=== PATIENT | female | born 1970 | race Caucasian/White ===

== ENCOUNTER 2016-11-01 20:45 | Emergency (ER) | payer BC, MEDICARE ==
--- NOTE | 2016-11-01 20:51 | EDM.PDOC ---
ED HPI GENERAL MEDICAL PROBLEM - General Stated Complaint: SEIZURE Time Seen by Provider: 11/01/16 20:51 Source of Information: Reports: Patient History Limitations: Reports: No Limitations - History of Present Illness INITIAL COMMENTS - FREE TEXT/NARRATIVE: 46 yo F with past medical history significant for Pseudoseizures. Was brought back to the ER this night with recurrent seizure like activity. Patient was seen earlier in the ER and evaluated. She did receive IV Ativan and Phenobarb. She apparently improved and was discharged. Return to the ER with continued symptoms Onset: Today Improves with: Reports: None Worsens with: Reports: None Associated Symptoms: Reports: No Other Symptoms - Related Data Allergies Allergy/AdvReac Type Severity Reaction Status Date / Time amoxicillin [Amoxicillin] Allergy Anaphylactic Verified 11/01/16 21:01 Shock cephalexin [Cephalexin] Allergy Rash Verified 11/01/16 21:01 lamotrigine [From Lamictal] Allergy Rash Verified 11/01/16 21:01 oseltamivir phosphate Allergy Cannot Verified 11/01/16 21:01 [From Tamiflu] Remember quetiapine fumarate Allergy Depression Verified 11/01/16 21:01 [From Seroquel] clonazepam AdvReac Depression Verified 11/01/16 21:01 Home Meds: Home Meds traZODone 50 mg PO BEDTIME 06/30/13 [History] Desvenlafaxine [Pristiq] 100 mg PO DAILY 04/08/15 [History] Estrogens, Conjugated [Premarin] 0.625 mg PO DAILY 04/08/15 [History] OXcarbazepine [Trileptal] 900 mg PO DAILY 04/08/15 [History] Simvastatin [Simvastatin] 20 mg PO BEDTIME 04/08/15 [History] Past Medical History Cardiovascular History: Reports: High Cholesterol Respiratory History: Reports: Asthma 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: Musculoskeletal History: Reports: Fracture Neurological History: Reports: Seizure Other Neuro History: "pseudoseizures" per daughter, and pt Psychiatric History: Reports: Anxiety, Bipolar, Depression, Other (See Below) - Infectious Disease History Infectious Disease History: Reports: Chicken Pox, Influenza - Past Surgical History HEENT Surgical History: Reports: Oral Surgery GI Surgical History: Reports: Appendectomy, Cholecystectomy Female Surgical History: Reports: Section, Hysterectomy, Salpingo- Oophorectomy Musculoskeletal Surgical History: Reports: Other (See Below) Social & Family History - Family History Family Medical History: Unobtainable - Tobacco Use Smoking Status *Q: Current Every Day Smoker Years of Tobacco use: 30 Packs/Tins Daily: 0.5 Used Tobacco, but Quit: No - Caffeine Use Caffeine Use: Reports: Coffee - Alcohol Use Days Per Week of Alcohol Use: 0 - Recreational Drug Use Recreational Drug Use: No - Living Situation & Occupation Living situation: Reports: ED ROS GENERAL - Review of Systems Review Of Systems: See Below Constitutional: Reports: No Symptoms HEENT: Reports: No Symptoms Respiratory: Reports: No Symptoms Cardiovascular: Reports: No Symptoms Endocrine: Reports: No Symptoms GI/Abdominal: Reports: No Symptoms Musculoskeletal: Reports: No Symptoms Skin: Reports: No Symptoms Neurological: Reports: Seizure Psychiatric: Reports: No Symptoms Hematologic/Lymphatic: Reports: No Symptoms Immunologic: Reports: No Symptoms ED EXAM, GENERAL - Physical Exam Exam: See Below Exam Limited By: No Limitations General Appearance: Alert, WD/WN, No Apparent Distress Eye Exam: Bilateral Eye: EOMI Ears: Normal External Exam, Normal Canal, Hearing Grossly Normal, Normal TMs Nose: Normal Inspection, Normal Mucosa, No Blood Throat/Mouth: Normal Inspection, Normal Lips, Normal Oropharynx, No Airway Compromise Head: Atraumatic, Normocephalic Neck: Normal Inspection, Supple, Non-Tender Respiratory/Chest: No Respiratory Distress, Lungs Clear Cardiovascular: Normal Peripheral Pulses, Regular Rate, Rhythm, No Edema GI/Abdominal: Normal Bowel Sounds, Soft, Non-Tender, No Organomegaly Back Exam: Normal Inspection, Full Range of Motion Extremities: Normal Inspection, Normal Range of Motion, Non-Tender Neurological: Alert, Oriented, CN II-XII Intact, Normal Cognition Psychiatric: Normal Affect, Normal Mood Skin Exam: Warm Lymphatic: No Adenopathy Course - Vital Signs Last Recorded V/S: Last Vital Signs Temp 36.9 C 11/01/16 20:45 Pulse 82 11/01/16 21:44 Resp 16 11/01/16 21:44 BP 99/61 11/01/16 21:44 Pulse Ox 94 L 11/01/16 20:45 - Orders/Labs/Meds Orders: Active Orders 24 hr Category Date Time Status Head wo Cont [CT] Stat Exams 11/01/16 20:51 Taken Labs: Laboratory Tests 11/01/16 11/01/16 11/01/16 Range/Units 21:00 21:00 21:00 WBC 4.5 (4.5-12.0) X10-3/uL RBC 4.18 (3.23-5.20) x10(6)uL Hgb 13.2 (11.5-15.5) g/dL Hct 38.1 (30.0-51.3) % MCV 91.1 (80-96) fL MCH 31.5 (27.7-33.6) pg MCHC 34.6 (32.2-35.4) g/dL RDW 12.4 (11.5-15.5) % Plt Count 172 (125-369) X10(3)uL MPV 7.7 (7.4-10.4) fL Neut % (Auto) 60.4 (46-82) % Lymph % (Auto) 30.1 (13-37) % Gosper % (Auto) 8.7 (4-12) % Eos % (Auto) 0 L (1.0-5.0) % Baso % (Auto) 1 (0-2) % Neut # (Auto) 2.8 (1.6-8.3) # Lymph # (Auto) 1.3 (0.6-5.0) # Gosper # (Auto) 0.4 (0.0-1.3) # Eos # (Auto) 0.0 (0.0-0.8) # Baso # (Auto) 0.0 (0.0-0.2) # Sodium 138 (135-145) mmol/L Potassium 3.8 (3.5-5.3) mmol/L Chloride 105 (100-110) mmol/L Carbon Dioxide 24 (23-29) mmol/L BUN 17 (5-20) mg/dL Creatinine 0.9 (0.6-1.3) mg/dL Est Cr Clr Drug Dosing TNP Estimated GFR (MDRD) > 60 (>60) BUN/Creatinine Ratio 18.9 (9-20) Glucose 116 (80-116) mg/dL Calcium 8.9 (8.6-10.2) mg/dL Total Bilirubin 0.3 (0.1-1.3) mg/dL AST 23 (5-27) IU/L ALT 14 D (14-26) IU/L Alkaline Phosphatase 61 (56-112) IU/L Total Protein 7.0 (6.0-8.0) g/dL Albumin 4.0 (3.5-5.2) g/dL Globulin 3.0 g/dL Albumin/Globulin Ratio 1.3 Urine Color (YELLOW) Urine Appearance (CLEAR) Urine pH (5.0-6.5) Ur Specific [place] (1.010-1.025) Urine Protein (NEGATIVE) mg/dL Urine Glucose (UA) (NEGATIVE) mg/dL Urine Ketones (NEGATIVE) mg/dL Urine Occult Blood (NEGATIVE) Urine Nitrite (NEGATIVE) Urine Bilirubin (NEGATIVE) Urine Urobilinogen (NEGATIVE) mg/dL Ur Leukocyte Esterase (NEGATIVE) Urine Opiates Screen (NEGATIVE) Ur Oxycodone Screen (NEGATIVE) Ur Propoxyphene Screen (NEGATIVE) Ur Barbituates Screen (NEGATIVE) Ur Tricyclics Screen (NEGATIVE) Ur Phencyclidine Scrn (NEGATIVE) Ur Amphetamine Screen (NEGATIVE) Urine MDMA Screen (NEGATIVE) U Benzodiazepines Scrn (NEGATIVE) U Cocaine Metab Screen (NEGATIVE) U Marijuana (THC) Screen (NEGATIVE) Ethyl Alcohol < 0.01 (<0.01) % 11/01/16 11/01/16 Range/Units 21:15 21:15 WBC (4.5-12.0) X10-3/uL RBC (3.23-5.20) x10(6)uL Hgb (11.5-15.5) g/dL Hct (30.0-51.3) % MCV (80-96) fL MCH (27.7-33.6) pg MCHC (32.2-35.4) g/dL RDW (11.5-15.5) % Plt Count (125-369) X10(3)uL MPV (7.4-10.4) fL Neut % (Auto) (46-82) % Lymph % (Auto) (13-37) % Gosper % (Auto) (4-12) % Eos % (Auto) (1.0-5.0) % Baso % (Auto) (0-2) % Neut # (Auto) (1.6-8.3) # Lymph # (Auto) (0.6-5.0) # Gosper # (Auto) (0.0-1.3) # Eos # (Auto) (0.0-0.8) # Baso # (Auto) (0.0-0.2) # Sodium (135-145) mmol/L Potassium (3.5-5.3) mmol/L Chloride (100-110) mmol/L Carbon Dioxide (23-29) mmol/L BUN (5-20) mg/dL Creatinine (0.6-1.3) mg/dL Est Cr Clr Drug Dosing Estimated GFR (MDRD) (>60) BUN/Creatinine Ratio (9-20) Glucose (80-116) mg/dL Calcium (8.6-10.2) mg/dL Total Bilirubin (0.1-1.3) mg/dL AST (5-27) IU/L ALT (14-26) IU/L Alkaline Phosphatase (56-112) IU/L Total Protein (6.0-8.0) g/dL Albumin (3.5-5.2) g/dL Globulin g/dL Albumin/Globulin Ratio Urine Color Yellow (YELLOW) Urine Appearance Clear (CLEAR) Urine pH 5.0 (5.0-6.5) Ur Specific [place] 1.025 (1.010-1.025) Urine Protein Negative (NEGATIVE) mg/dL Urine Glucose (UA) Normal (NEGATIVE) mg/dL Urine Ketones Negative (NEGATIVE) mg/dL Urine Occult Blood Moderate H (NEGATIVE) Urine Nitrite Negative (NEGATIVE) Urine Bilirubin Negative (NEGATIVE) Urine Urobilinogen Normal (NEGATIVE) mg/dL Ur Leukocyte Esterase Negative (NEGATIVE) Urine Opiates Screen Negative (NEGATIVE) Ur Oxycodone Screen Negative (NEGATIVE) Ur Propoxyphene Screen Negative (NEGATIVE) Ur Barbituates Screen Positive H (NEGATIVE) Ur Tricyclics Screen Positive H (NEGATIVE) Ur Phencyclidine Scrn Negative (NEGATIVE) Ur Amphetamine Screen Negative (NEGATIVE) Urine MDMA Screen Negative (NEGATIVE) U Benzodiazepines Scrn Positive H (NEGATIVE) U Cocaine Metab Screen Negative (NEGATIVE) U Marijuana (THC) Screen Negative (NEGATIVE) Ethyl Alcohol (<0.01) % Meds: Medications Discontinued Medications Generic Name Dose Route Start Last Admin Trade Name Freq PRN Reason Stop Dose Admin Sodium Chloride 1,000 mls @ 1,000 mls/hr 11/01/16 20:52 11/01/16 22:43 Normal Saline IV 11/01/16 21:51 Not Given .BOLUS ONE Lorazepam 2 mg 11/01/16 20:54 11/01/16 20:57 Ativan IVPUSH 11/01/16 20:55 2 mg ONETIME ONE Administration Lorazepam 1 mg 11/01/16 22:45 Ativan IVPUSH 11/01/16 22:46 ONETIME ONE Ondansetron HCl 4 mg 11/01/16 20:53 11/01/16 22:43 Zofran IVPUSH 11/01/16 20:54 Not Given ONETIME ONE Departure - Departure Time of Disposition: 22:51 Disposition: Home, Self-Care 01 Condition: Good Clinical Impression: Pseudoseizure, Pseudoseizures - Discharge Information Instructions: Nonepileptic Seizures Referrals: Lizbeth Hays PA [Primary Care Provider] - Forms: ED Department Discharge Additional Instructions: Follow with PCP, Neurologist Continue Home medications. Return if symptoms worsen Call your Physician or Return to Emergency Department if: * Your condition worsens in any way. * You develop fever greater than 100.4. * You have vomitting that does not stop with medications. * You have pain that is not controlled with medications. - My Orders Last 24 Hours: My Active Orders 11/01/16 20:51 Head wo Cont [CT] Stat - Assessment/Plan Last 24 Hours: My Active Orders 11/01/16 20:51 Head wo Cont [CT] Stat
[2016-11-01] MEDS ORDERED: Sodium Chloride 0.9% 1,000 ML IV ONE (20:52)
[2016-11-01] MEDS ORDERED: Ondansetron 4 MG/2 ML SDV IVPUSH ONE (20:53)
[2016-11-01] MEDS ORDERED: LORazepam 2 MG/ML MDV IVPUSH ONE ×2 (20:54→22:45)
[2016-11-01 23:28] VITALS: BP 98/56
== END 2016-11-01 23:20 | disposition home or self-care (01) ==
LOC: FB.ED 20:45
DX: R29.818 Other symptoms and signs involving the nervous system (principal); E78.00 Pure hypercholesterolemia, unspecified; J45.909 Unspecified asthma, uncomplicated; F31.9 Bipolar disorder, unspecified; F41.9 Anxiety disorder, unspecified; F17.210 Nicotine dependence, cigarettes, uncomplicated; Z90.49 Acquired absence of other specified parts of digestive tract; Z88.1 Allergy status to other antibiotic agents; Z88.8 Allergy status to other drugs, medicaments and biological substances; Z79.899 Other long term (current) drug therapy; Z90.710 Acquired absence of both cervix and uterus
CPT/HCPCS: 36415; 70450; 80053; 80305; 81003; 85025; 96372; 96374; 96376; 99284; G0480; J2060; J2560; J7050

== ENCOUNTER 2016-11-04 13:02 | Emergency (ER) | payer BC, MEDICARE ==
[2016-11-04] MEDS ORDERED: levETIRAcetam 500 MG in Sodium Chloride 0.9% 100 ML IV ONE (13:30)
[2016-11-04] MEDS ORDERED: Sodium Chloride 0.9% 1,000 ML IV SCH (13:45)
[2016-11-04] MEDS ORDERED: PHENobarbital 16.2 MG Tab PO ONE (13:48)
[2016-11-04] MEDS ORDERED: Valproate Sodium 500 MG/5 ML SDV IV ONE (13:50)
[2016-11-04 14:13] VITALS: BP 102/56
[2016-11-04] MEDS ORDERED: PHENobarbital 32.4 MG Tab PO SCH (14:15)
--- NOTE | 2016-11-07 16:02 | ER ---
DATE SEEN: 11/04/2016 TIME SEEN: The patient was seen at 1305 hours. HISTORY OF PRESENT ILLNESS: She has history of pseudoseizures, started approximately 7 years ago per . She was seen in the emergency room on 11/01/2016 and sent to [place] and seen by Dr. Wright at [facility]. She has usual stresses and takes trazodone 50 mg at bedtime, oxcarbazepine (Trileptal) 900 mg daily, and Pristiq 100 mg daily (desvenlafaxine), and Premarin. Today about half an hour ago, she started waving her hands side to side. She had some extensive activity but no tonic-clonic motion of lower extremities. These lasted for 35 seconds to a minute. She has had Ativan in the past, but after receiving, she became angry and dysphoric and started yelling at people. She has not had an EEG. This pseudoseizure has been present since 2006. Smokes half a pack of cigarettes per day. Three drinks of alcohol per year. 6, para 5-1-0-5. Not using control. She notes her vision is slightly blurry. No recent history of use of alcohol. She has been driving motor vehicles and sometimes she has to stop because she feels her vision is changed. As I am speaking to her, she has four different episodes lasting 15 to 20 seconds, 35 seconds, and 30 seconds each. Last meal was at bedtime, "she has usual stresses". She denies any recent fever, cough, respiratory infection, chest pain, shortness of breath, cough, abdominal discomfort, musculoskeletal pains, joint aches, arthritis, or head trauma. PHYSICAL EXAMINATION: VITAL SIGNS: Blood pressure 102/56, heart rate 77, respirations 18. HEENT: PERRLA intact. EOMs normal. Hearing is intact. The patient is conversant and just somnolent. She complains of a headache. It is generalized, nonspecific headache. This is not the worst headache of her life. NECK: She has no neck pain. No thyromegaly or masses in neck. No cervical adenopathy. LUNGS: Clear to auscultation without rales, rhonchi, or wheezes. HEART: S1, S2. No irregularity of rhythm. ABDOMEN: Soft. No guarding. No abdominal discomfort. EXTREMITIES: Without abnormality. NEURO: Deep tendon reflexes, upper and lower extremities, symmetrical 1+ and normoactive. No upgoing toes. Babinski negative. No dysmetria. [id number] test is normal. No past pointing. No pronator drift. No decreased muscle strength in upper or lower extremities. Gait appropriate. Within a span of 20 minutes, she had several spells lasting 15 to 35 seconds. After that, she is able to talk communicate, but she is more somnolent. No tongue laceration. No loss of urine. DIAGNOSIS: Pseudoseizures. LABORATORY DATA: Within normal limits. See CBC and CMP. ASSESSMENT: Pseudoseizures, history of bipolar disorder, history of asthma. This patient has been discussed with Dr. Wright, of [place], who noted that she could have Valium or consider dose of valproic acid. Valproic acid is a mood stabilizer, and not prescribed to stop the pseudoseizures, but valproic acid used for psychiatric issues. Also, she can use phenobarbital 64.8 mg every 6 hours as needed, when she has pseudoseizure spells. PLAN: She has a prescription for phenobarbital 64.8. Follow up with her doctor in one week. Take phenobarbital on a 6-hour basis only when she is symptomatic. She has a prescription for valproic acid and she can take one tablet a day. /[id number] ADI/TERRELL
== END 2016-11-04 16:00 | disposition home or self-care (01) ==
LOC: FB.ED 13:02
DX: F44.5 Conversion disorder with seizures or convulsions (principal); J45.909 Unspecified asthma, uncomplicated; F31.9 Bipolar disorder, unspecified; F17.210 Nicotine dependence, cigarettes, uncomplicated
CPT/HCPCS: 36415; 80053; 82962; 85025; 96361; 96365; 99284; A9270; J7040; 99283; J3490

== ENCOUNTER 2017-01-27 21:14 | Observation (INO) | payer BC, MEDICARE ==
[2017-01-27] MEDS ORDERED: diphenhydrAMINE 50 MG/ML SDV IVPUSH ONE (21:26)
[2017-01-27] MEDS ORDERED: Sodium Chloride 0.9% 1,000 ML IV ONE (21:27)
--- NOTE | 2017-01-27 21:33 | EDM.PDOC ---
ED HPI GENERAL MEDICAL PROBLEM - General Stated Complaint: SEIZURE Time Seen by Provider: 01/27/17 21:14 Source of Information: Reports: Patient, EMS, Family History Limitations: Reports: Altered Mental Status - History of Present Illness INITIAL COMMENTS - FREE TEXT/NARRATIVE: 47 y.o.w.f with h/o of psuedoseizures, came to the ed by EMS due to another seizure after she took Fluvoxamine. She took that mediation at 8 pm and had a seizure at 8.30 pm, EMS was called and gave 5 mg of versed. On arrival, the pt was lethargic. Sz precautions were applied. 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) (versed by EMS) - Related Data Allergies Allergy/AdvReac Type Severity Reaction Status Date / Time amoxicillin [Amoxicillin] Allergy Anaphylactic Verified 01/27/17 21:37 Shock cephalexin [Cephalexin] Allergy Rash Verified 01/27/17 21:37 ciprofloxacin Allergy Cannot Verified 01/27/17 21:37 Remember lamotrigine [From Lamictal] Allergy Rash Verified 01/27/17 21:37 levofloxacin Allergy Cannot Verified 01/27/17 21:37 Remember lurasidone Allergy Cannot Verified 01/27/17 21:37 Remember oseltamivir phosphate Allergy Cannot Verified 01/27/17 21:37 [From Tamiflu] Remember quetiapine fumarate Allergy Depression Verified 01/27/17 21:37 [From Seroquel] clonazepam AdvReac Depression Verified 01/27/17 21:37 lorazepam [From Ativan] AdvReac Agitation Verified 01/27/17 21:37 Home Meds: Home Meds traZODone 50 mg PO BEDTIME 06/30/13 [History] Estrogens, Conjugated [Premarin] 0.625 mg PO DAILY 04/08/15 [History] OXcarbazepine [Trileptal] 900 mg PO BEDTIME 04/08/15 [History] Simvastatin [Simvastatin] 20 mg PO BEDTIME 04/08/15 [History] Cholecalciferol (Vitamin D3) [Vitamin D3] 5,000 unit PO DAILY 01/27/17 [History] Cyanocobalamin (Vitamin B12) [Vitamin B12] 100 mcg PO DAILY 01/27/17 [History] OXcarbazepine [Oxcarbazepine] 900 mg PO BEDTIME 01/27/17 [History] Past Medical History Cardiovascular History: Reports: High Cholesterol Respiratory History: Reports: Asthma 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 History: Reports: Fracture Neurological History: Reports: Seizure Other Neuro History: "pseudoseizures" per , and pt Psychiatric History: Reports: Anxiety, Bipolar, Depression, Other (See Below) - Infectious Disease History Infectious Disease History: Reports: Chicken Pox, Influenza - Past Surgical History HEENT Surgical History: Reports: Oral Surgery GI Surgical History: Reports: Appendectomy, Cholecystectomy Female Surgical History: Reports: Section, Hysterectomy, Salpingo- Oophorectomy Musculoskeletal Surgical History: Reports: Other (See Below) Social & Family History - Family History Family Medical History: Unobtainable - Tobacco Use Smoking Status *Q: Unknown Ever Smoked Years of Tobacco use: 30 Packs/Tins Daily: 0.5 Used Tobacco, but Quit: No Second Hand Smoke Exposure: No - Caffeine Use Caffeine Use: Reports: Coffee - Alcohol Use Days Per Week of Alcohol Use: 0 - Recreational Drug Use Recreational Drug Use: No - Living Situation & Occupation Living situation: Reports: ED ROS GENERAL - Review of Systems Review Of Systems: Unable To Obtain (lethargy, got 5 mg of versed) - Physical Exam Exam: See Below Exam Limited By: Altered Mental Status General Appearance: WD/WN, No Apparent Distress, Lethargic Eye Exam: Bilateral Eye: Normal Inspection Ears: Normal External Exam Nose: Normal Inspection Throat/Mouth: Normal Inspection, Other (no tongue bite) Head Exam: Atraumatic, Normocephalic Neck: Normal Inspection Respiratory/Chest: No Respiratory Distress Cardiovascular: Normal Peripheral Pulses GI/Abdominal: Normal Bowel Sounds (Female) Exam: Deferred Rectal (Female) Exam: Deferred Neuro Exam (Abbreviated): Alert, Oriented, CN II-XII Intact, Normal Cognition, Normal Gait Back Exam: Normal Inspection, Full Range of Motion Extremities: Normal Inspection, Normal Range of Motion, Non-Tender Psychiatric: Depressed Mood Skin Exam: Warm, Dry, Intact Course - Vital Signs Text/Narrative:: 47 y.o.w.f with h/o of psuedoseizures, came to the ed by EMS due to another seizure after she took Fluvoxamine. She took that mediation at 8 pm and had a seizure at 8.30 pm, EMS was called and gave 5 mg of versed. On arrival, the pt was lethargic. Sz precautions were applied. BP 116/70 RR 20 Pulse ox 95 Temp 36.5 PE: WNWD WF lethargic, no tongue bite, underwear was dry, EEC neg in the past. Labs: K 3.2 Na 137 Bun 18 Cr. 0.9 GFR > 60 UA/UDS not available because pt could not void (Bladder scanner showed 65 cc) Imaging: Not indicated Impression: Pseudoseizures, Hypokalemia, dehydration Tx: NS, Potassium, Benadryl 50 mg i.v Reexam: Improved, still has occ upper ext uncontrolled shaking while talking, not postictal. Plan: admit to tele. agreed to admit Pt to [facility] Addendum: Pt signed out ama after she was admitted to the [facility] UDS was pos for Benzos. 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 Last Recorded V/S: Last Vital Signs Temp 36.4 C 01/27/17 23:25 Pulse 86 01/27/17 23:25 Resp 14 01/27/17 23:25 BP 102/64 01/27/17 23:25 Pulse Ox 96 01/27/17 23:25 - Orders/Labs/Meds Orders: Active Orders 24 hr Category Date Time Status Seizure Precautions [OM.PC] Routine Oth 01/27/17 21:48 Ordered Labs: Laboratory Tests 01/27/17 01/27/17 01/27/17 Range/Units 21:45 21:45 21:45 WBC 4.7 (4.5-12.0) X10-3/uL RBC 4.12 (3.23-5.20) x10(6)uL Hgb 12.9 (11.5-15.5) g/dL Hct 36.7 (30.0-51.3) % MCV 89.2 (80-96) fL MCH 31.3 (27.7-33.6) pg MCHC 35.0 (32.2-35.4) g/dL RDW 12.2 (11.5-15.5) % Plt Count 194 (125-369) X10(3)uL MPV 7.3 L (7.4-10.4) fL Neut % (Auto) 53.7 (46-82) % Lymph % (Auto) 37.9 H (13-37) % Weld % (Auto) 7.3 (4-12) % Eos % (Auto) 1 (1.0-5.0) % Baso % (Auto) 1 (0-2) % Neut # (Auto) 2.6 (1.6-8.3) # Lymph # (Auto) 1.8 (0.6-5.0) # Weld # (Auto) 0.3 (0.0-1.3) # Eos # (Auto) 0.0 (0.0-0.8) # Baso # (Auto) 0.0 (0.0-0.2) # Sodium 137 (135-145) mmol/L Potassium 3.2 L (3.5-5.3) mmol/L Chloride 104 (100-110) mmol/L Carbon Dioxide 23 (23-29) mmol/L BUN 18 (5-20) mg/dL Creatinine 0.9 (0.6-1.3) mg/dL Est Cr Clr Drug Dosing 71.03 mL/min Estimated GFR (MDRD) > 60 (>60) BUN/Creatinine Ratio 20.0 (9-20) Glucose 83 (80-116) mg/dL Calcium 9.2 (8.6-10.2) mg/dL TSH, Ultra Sensitive (0.4-5.5) nlU/mL Ethyl Alcohol < 0.01 (<0.01) % 01/27/17 Range/Units 21:45 WBC (4.5-12.0) X10-3/uL RBC (3.23-5.20) x10(6)uL Hgb (11.5-15.5) g/dL Hct (30.0-51.3) % MCV (80-96) fL MCH (27.7-33.6) pg MCHC (32.2-35.4) g/dL RDW (11.5-15.5) % Plt Count (125-369) X10(3)uL MPV (7.4-10.4) fL Neut % (Auto) (46-82) % Lymph % (Auto) (13-37) % Weld % (Auto) (4-12) % Eos % (Auto) (1.0-5.0) % Baso % (Auto) (0-2) % Neut # (Auto) (1.6-8.3) # Lymph # (Auto) (0.6-5.0) # Weld # (Auto) (0.0-1.3) # Eos # (Auto) (0.0-0.8) # Baso # (Auto) (0.0-0.2) # Sodium (135-145) mmol/L Potassium (3.5-5.3) mmol/L Chloride (100-110) mmol/L Carbon Dioxide (23-29) mmol/L BUN (5-20) mg/dL Creatinine (0.6-1.3) mg/dL Est Cr Clr Drug Dosing mL/min Estimated GFR (MDRD) (>60) BUN/Creatinine Ratio (9-20) Glucose (80-116) mg/dL Calcium (8.6-10.2) mg/dL TSH, Ultra Sensitive 3.42 (0.4-5.5) nlU/mL Ethyl Alcohol (<0.01) % Meds: Medications Discontinued Medications Generic Name Dose Route Start Last Admin Trade Name Freq PRN Reason Stop Dose Admin Diphenhydramine HCl 50 mg 01/27/17 21:26 01/27/17 21:31 Benadryl IVPUSH 01/27/17 21:27 50 mg ONETIME ONE Administration Sodium Chloride 1,000 mls @ 999 mls/hr 01/27/17 21:27 01/27/17 21:31 Normal Saline IV 01/27/17 22:27 999 mls/hr .BOLUS ONE Administration Sodium Chloride 1,000 mls @ 999 mls/hr 01/27/17 22:30 01/27/17 22:28 Normal Saline IV 999 mls/hr ASDIRECTED JOSHUA Administration Lactated Ringer's 1,000 mls @ 125 mls/hr 01/27/17 23:15 Ringers, Lactated IV ASDIRECTED JOSHUA Ondansetron HCl 4 mg 01/27/17 23:02 Zofran IV Q4H PRN Nausea/Vomiting Potassium Chloride 40 meq 01/27/17 22:26 01/27/17 22:32 Klor-Con M20 PO 01/27/17 22:27 40 meq ONETIME ONE Administration Departure - Departure Time of Disposition: 23:13 Disposition: Refer to Observation Condition: Fair Clinical Impression: Pseudoseizure, Hypokalemia, Dehydration - Discharge Information - My Orders Last 24 Hours: My Active Orders 01/27/17 21:48 Seizure Precautions [OM.PC] Routine - Assessment/Plan Last 24 Hours: My Active Orders 01/27/17 21:48 Seizure Precautions [OM.PC] Routine
[2017-01-27] MEDS ORDERED: Potassium Chloride 20 MEQ Tab.ER PO ONE (22:26)
[2017-01-27] MEDS ORDERED: Sodium Chloride 0.9% 1,000 ML IV SCH (22:30)
[2017-01-27] MEDS ORDERED: Ondansetron 4 MG/2 ML SDV IV PRN (23:02)
[2017-01-27] MEDS ORDERED: Lactated Ringers 1,000 ML IV SCH (23:15)
[2017-01-28 00:37] VITALS: BP 102/64
== END 2017-01-28 00:09 | disposition left against medical advice (07) ==
LOC: FB.ED 21:14 → FB.MS 23:02 → UNDOADMOB 23:18 → FB.MS 23:18
PROVIDERS: ADMIT Emergency Medicine; ATTEND Emergency Medicine
DX: R56.9 Unspecified convulsions (principal); E78.00 Pure hypercholesterolemia, unspecified; J45.909 Unspecified asthma, uncomplicated; F41.9 Anxiety disorder, unspecified; F32.9 Major depressive disorder, single episode, unspecified; E87.6 Hypokalemia; E86.0 Dehydration; Z88.1 Allergy status to other antibiotic agents; Z88.8 Allergy status to other drugs, medicaments and biological substances; Z79.899 Other long term (current) drug therapy; Z90.49 Acquired absence of other specified parts of digestive tract; Z90.710 Acquired absence of both cervix and uterus; Z98.890 Other specified postprocedural states
CPT/HCPCS: 36415; 80048; 80305; 84443; 85025; 96361; 96374; 99284; A9270; G0480; J1200; J7040; 99285; G0378

== ENCOUNTER 2017-04-14 21:00 | Emergency (ER) | payer BC, MEDICARE ==
[2017-04-14 21:12] VITALS: BP 126/82
--- NOTE | 2017-04-15 03:42 | ER ---
DATE SEEN: 04/14/2017 REASON FOR VISIT: Headache. HISTORY OF PRESENT ILLNESS: A 47-year-old female with a headache, pain moderate to severe after she fell 3 days ago. She believes she had a seizure. REVIEW OF SYSTEMS: No fever or chills. No nausea. No loss of consciousness. ALLERGIES: Reviewed. PAST MEDICAL HISTORY: Seizures. PHYSICAL EXAMINATION: VITAL SIGNS: Afebrile, blood pressure is normal, pulse is 74. HEENT: Head normal size. There is swelling of the forehead that is tender to palpation. There is some ecchymosis periorbitally. Pupils are equal, reactive, and with normal extraocular movements. NEURO: Normal findings with no cranial nerve deficits or change in Alyce Coma Scale. LABORATORY DATA: None. CT head negative. IMPRESSION: Mild head injury. PLAN: Supportive reassurance. TIME SEEN: 2215 hours. /[id number] FAYE/TERRELL
== END 2017-04-14 22:20 | disposition home or self-care (01) ==
LOC: FB.ED 21:00
DX: S09.90XA Unspecified injury of head, initial encounter (principal); W19.XXXA Unspecified fall, initial encounter
CPT/HCPCS: 70450; 99283

== ENCOUNTER 2018-04-11 19:54 | Emergency (ER) | payer BC, MEDICARE ==
[2018-04-11 20:12] VITALS: BP 128/80
--- NOTE | 2018-04-11 21:35 | EDM.PDOC ---
ED HPI GENERAL MEDICAL PROBLEM - General Chief Complaint: Respiratory Problem Stated Complaint: CARDIAC R/O Time Seen by Provider: 04/11/18 20:15 Source of Information: Reports: Patient History Limitations: Reports: No Limitations - History of Present Illness INITIAL COMMENTS - FREE TEXT/NARRATIVE: c/o cough given z-vance 03/22, flu test neg no f/c/d cough no better given pred x 7d 1w later still not better given doxy, has 1d left, still with cough no longer productive smokes 1/2 ppd CBC and BMP tonight are neg pt declined benzonatate or other cough suppressant, said she would using something OTC no h/o asthma, says "I get bronchospasm will illness" - Related Data Allergies Allergy/AdvReac Type Severity Reaction Status Date / Time amoxicillin [Amoxicillin] Allergy Anaphylactic Verified 01/27/17 21:37 Shock cephalexin [Cephalexin] Allergy Rash Verified 01/27/17 21:37 ciprofloxacin Allergy Cannot Verified 01/27/17 21:37 Remember lamotrigine [From Lamictal] Allergy Rash Verified 01/27/17 21:37 levofloxacin Allergy Cannot Verified 01/27/17 21:37 Remember lurasidone Allergy Cannot Verified 01/27/17 21:37 Remember oseltamivir phosphate Allergy Cannot Verified 01/27/17 21:37 [From Tamiflu] Remember quetiapine fumarate Allergy Depression Verified 01/27/17 21:37 [From Seroquel] clonazepam AdvReac Depression Verified 01/27/17 21:37 lorazepam [From Ativan] AdvReac Agitation Verified 01/27/17 21:37 Home Meds: Home Meds traZODone 50 mg PO BEDTIME 06/30/13 [History] Estrogens, Conjugated [Premarin] 0.625 mg PO DAILY 04/08/15 [History] OXcarbazepine [Trileptal] 900 mg PO BEDTIME 04/08/15 [History] Simvastatin 20 mg PO BEDTIME 04/08/15 [History] Cholecalciferol (Vitamin D3) [Vitamin D3] 5,000 unit PO DAILY 01/27/17 [History] Cyanocobalamin (Vitamin B12) [Vitamin B12] 100 mcg PO DAILY 01/27/17 [History] Doxycycline Hyclate 100 mg PO DAILY 04/11/18 [History] Vortioxetine Hydrobromide [Trintellix] 20 mg PO DAILY 04/11/18 [History] Past Medical History HEENT History: Reports: Impaired Vision Cardiovascular History: Reports: High Cholesterol Respiratory History: Reports: Asthma, Other (See Below) Other Respiratory History: hx smoking 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: Musculoskeletal History: Reports: Fracture Neurological History: Reports: Seizure Other Neuro History: "pseudoseizures" per , and pt Psychiatric History: Reports: Anxiety, Bipolar, Depression - Infectious Disease History Infectious Disease History: Reports: Chicken Pox, Influenza - Past Surgical History Head Surgeries/Procedures: Reports: None HEENT Surgical History: Reports: Oral Surgery GI Surgical History: Reports: Appendectomy, Cholecystectomy Female Surgical History: Reports: Section, Hysterectomy, Salpingo- Oophorectomy Musculoskeletal Surgical History: Reports: Other (See Below) Social & Family History - Family History Family Medical History: Unobtainable - Tobacco Use Smoking Status *Q: Current Every Day Smoker Years of Tobacco use: 20 Packs/Tins Daily: 0.5 - Caffeine Use Caffeine Use: Reports: None Caffeine Use Comment: drinks decaf coffee - Recreational Drug Use Recreational Drug Use: No - Living Situation & Occupation Living situation: Reports: ED ROS GENERAL - Review of Systems Review Of Systems: See Below Constitutional: Reports: No Symptoms HEENT: Reports: No Symptoms Respiratory: Reports: Cough. Denies: Wheezing, Sputum Cardiovascular: Reports: No Symptoms Endocrine: Reports: No Symptoms GI/Abdominal: Reports: No Symptoms : Reports: No Symptoms Musculoskeletal: Reports: No Symptoms Skin: Reports: No Symptoms Neurological: Reports: No Symptoms Psychiatric: Reports: No Symptoms Hematologic/Lymphatic: Reports: No Symptoms Immunologic: Reports: No Symptoms ED EXAM, GENERAL - Physical Exam Exam: See Below Exam Limited By: No Limitations General Appearance: Alert, WD/WN, No Apparent Distress Ears: Normal External Exam Nose: Normal Inspection, Normal Mucosa, No Blood Throat/Mouth: Normal Inspection, Normal Lips, Normal Teeth, Normal Gums, Normal Oropharynx, Normal Voice, No Airway Compromise Head: Atraumatic, Normocephalic Neck: Normal Inspection, Supple, Non-Tender, Full Range of Motion. No: Lymphadenopathy (R), Lymphadenopathy (L) Respiratory/Chest: No Respiratory Distress, Lungs Clear, Normal Breath Sounds, No Accessory Muscle Use, Chest Non-Tender Cardiovascular: Regular Rate, Rhythm, No Edema, No Gallop, No JVD, No Murmur, No Rub GI/Abdominal: Soft, Non-Tender, No Distention Extremities: Normal Inspection, Normal Range of Motion, Non-Tender, No Pedal Edema Neurological: Alert, Oriented, CN II-XII Intact, Normal Cognition, No Motor/ Sensory Deficits Psychiatric: Normal Affect, Normal Mood Skin Exam: Warm, Dry, Intact, Normal Color, No Rash Lymphatic: No Adenopathy Course - Vital Signs Last Recorded V/S: Last Vital Signs Temp 36.4 C 04/11/18 20:10 Pulse 92 04/11/18 20:10 Resp 18 04/11/18 20:10 BP 128/80 04/11/18 20:10 Pulse Ox 100 04/11/18 20:10 - Orders/Labs/Meds Labs: Laboratory Tests 04/11/18 04/11/18 Range/Units 20:50 20:50 WBC 5.9 (4.5-12.0) X10-3/uL RBC 4.32 (3.23-5.20) x10(6)uL Hgb 13.9 (11.5-15.5) g/dL Hct 40.2 (30.0-51.3) % MCV 93.0 (80-96) fL MCH 32.2 (27.7-33.6) pg MCHC 34.7 (32.2-35.4) g/dL RDW 13.1 (11.5-15.5) % Plt Count 184 (125-369) X10(3)uL MPV 7.9 (7.4-10.4) fL Neut % (Auto) 59.7 (46-82) % Lymph % (Auto) 31.3 (13-37) % [place] % (Auto) 6.8 (4-12) % Eos % (Auto) 2 (1.0-5.0) % Baso % (Auto) 1 (0-2) % Neut # (Auto) 3.6 (1.6-8.3) # Lymph # (Auto) 1.8 (0.6-5.0) # [place] # (Auto) 0.4 (0.0-1.3) # Eos # (Auto) 0.1 (0.0-0.8) # Baso # (Auto) 0.0 (0.0-0.2) # Sodium 141 (135-145) mmol/L Potassium 3.6 (3.5-5.3) mmol/L Chloride 107 (100-110) mmol/L Carbon Dioxide 27 (21-32) mmol/L BUN 24 H (7-18) mg/dL Creatinine 0.9 (0.55-1.02) mg/dL Est Cr Clr Drug Dosing 64.61 mL/min Estimated GFR (MDRD) > 60 (>60) BUN/Creatinine Ratio 26.7 H (9-20) Glucose 98 (80-116) mg/dL Calcium 8.7 (8.6-10.2) mg/dL Departure - Departure Time of Disposition: 21:30 Disposition: Home, Self-Care 01 Condition: Good Clinical Impression: Persistent cough - Discharge Information *PRESCRIPTION DRUG MONITORING PROGRAM REVIEWED*: Not Applicable *COPY OF PRESCRIPTION DRUG MONITORING REPORT IN PATIENT FRANDY: Not Applicable Instructions: Cough, Adult Referrals: Lizbeth Hays PA [Primary Care Provider] - Additional Instructions: Increase fluids without caffeine. Use cough medicine as needed. The cough may easily hang on for another 1-2 weeks, occasionally longer. Get adequate rest. See your doctor in 1 week as needed.
== END 2018-04-11 21:39 | disposition home or self-care (01) ==
LOC: FB.ED 19:54
DX: R05 Cough (principal); E78.00 Pure hypercholesterolemia, unspecified; J45.909 Unspecified asthma, uncomplicated; F31.9 Bipolar disorder, unspecified; F41.9 Anxiety disorder, unspecified; F17.210 Nicotine dependence, cigarettes, uncomplicated; Z79.891 Long term (current) use of opiate analgesic; Z79.899 Other long term (current) drug therapy; Z88.1 Allergy status to other antibiotic agents; Z88.5 Allergy status to narcotic agent; Z88.8 Allergy status to other drugs, medicaments and biological substances; Z90.49 Acquired absence of other specified parts of digestive tract; Z90.89 Acquired absence of other organs; Z98.890 Other specified postprocedural states; Z90.710 Acquired absence of both cervix and uterus; Z90.722 Acquired absence of ovaries, bilateral
CPT/HCPCS: 36415; 80048; 85025; 99283

== ENCOUNTER 2019-05-06 18:14 | Emergency (ER) | payer BC ==
[2019-05-06 18:32] VITALS: PULSE 85
[2019-05-06] MEDS ORDERED: Ondansetron 4 MG/2 ML SDV IVPUSH ONE (18:44)
[2019-05-06] MEDS ORDERED: Sodium Chloride 0.9% 1,000 ML IV SCH (18:45)
[2019-05-06] MEDS ORDERED: Ketorolac 30 MG/ML SDV IVPUSH ONE (20:29)
[2019-05-06 20:51] VITALS: BP 104/50
--- NOTE | 2019-05-06 20:57 | EDM.PDOC ---
ED HPI GENERAL MEDICAL PROBLEM - General Chief Complaint: Gastrointestinal Problem Stated Complaint: NAUSEA,VOMITING Time Seen by Provider: 05/06/19 18:35 - History of Present Illness INITIAL COMMENTS - FREE TEXT/NARRATIVE: was out yesterday , had burger , then went out with friends , at 4am started having abdominal pain , cramps and vomiting has been vomiting since then till here in the ER has mad attempt to eat and keep down foods unsuccessfully has had no diarrhea , no fever Onset: Today Onset Date: 05/06/19 Duration: Getting Worse Location: Reports: Neck Quality: Reports: Ache Severity: Mild Improves with: Reports: Rest Worsens with: Reports: Eating Associated Symptoms: Reports: Loss of Appetite, Malaise, Nausea/Vomiting Treatments [employer]: Reports: Acetaminophen Generalized Pain Score (Numeric/FACES): 7 - Related Data Allergies Allergy/AdvReac Type Severity Reaction Status Date / Time amoxicillin [Amoxicillin] Allergy Anaphylactic Verified 05/06/19 18:23 Shock cephalexin [Cephalexin] Allergy Rash Verified 05/06/19 18:23 ciprofloxacin Allergy Cannot Verified 05/06/19 18:23 Remember diphenhydramine Allergy Agitation Verified 05/06/19 18:23 [From Benadryl] lamotrigine [From Lamictal] Allergy Rash Verified 05/06/19 18:23 levofloxacin Allergy Cannot Verified 05/06/19 18:23 Remember lurasidone Allergy Cannot Verified 05/06/19 18:23 Remember oseltamivir phosphate Allergy Cannot Verified 05/06/19 18:23 [From Tamiflu] Remember quetiapine fumarate Allergy Depression Verified 05/06/19 18:23 [From Seroquel] clonazepam AdvReac Depression Verified 05/06/19 18:23 lorazepam [From Ativan] AdvReac Agitation Verified 05/06/19 18:23 Home Meds: Home Meds traZODone 50 mg PO BEDTIME 06/30/13 [History] Estrogens, Conjugated [Premarin] 0.625 mg PO DAILY 04/08/15 [History] OXcarbazepine [Trileptal] 900 mg PO BEDTIME 04/08/15 [History] Simvastatin 40 mg PO BEDTIME 04/08/15 [History] Cholecalciferol (Vitamin D3) [Vitamin D3] 5,000 unit PO DAILY 01/27/17 [History] Cyanocobalamin (Vitamin B12) [Vitamin B12] 100 mcg PO DAILY 01/27/17 [History] Vortioxetine Hydrobromide [Trintellix] 20 mg PO DAILY 04/11/18 [History] Ondansetron [Zofran ODT] 4 mg PO Q6H PRN #30 tab.dis 05/06/19 [Rx] Pantoprazole Sodium [Protonix] 20 mg PO DAILY #30 tablet. 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: Musculoskeletal History: Reports: Fracture Other Musculoskeletal History: hx fx L foot, R hand Neurological History: Reports: Concussion, Migraines, Seizure Other Neuro History: "pseudoseizures" per , and pt Psychiatric History: Reports: Anxiety, Bipolar, Depression, Psych Hospitalization(s) Endocrine/Metabolic History: Reports: Obesity/BMI 30+ - Infectious Disease History Infectious Disease History: Reports: Chicken Pox, Influenza - Past Surgical History Head Surgeries/Procedures: Reports: None HEENT Surgical History: Reports: Oral Surgery GI Surgical History: Reports: Appendectomy, Cholecystectomy, Colonoscopy Female Surgical History: Reports: Section, Hysterectomy, Salpingo- Oophorectomy Other Female Surgeries/Procedures: CS x 3 Musculoskeletal Surgical History: Reports: Other (See Below) Other Musculoskeletal Surgeries/Procedures:: L foot surgery Social & Family History - Family History Family Medical History: Unobtainable - Tobacco Use Smoking Status *Q: Current Every Day Smoker Years of Tobacco use: 30 Packs/Tins Daily: 0.5 - Caffeine Use Caffeine Use: Reports: Soda Caffeine Use Comment: drinks decaf coffee - Recreational Drug Use Recreational Drug Use: No - Living Situation & Occupation Living situation: Reports: ED ROS GENERAL - Review of Systems Review Of Systems: Comprehensive ROS is negative, except as noted in HPI. Constitutional: Reports: Weakness. Denies: Fever, Chills, Malaise HEENT: Reports: No Symptoms Respiratory: Reports: No Symptoms Cardiovascular: Reports: No Symptoms Endocrine: Reports: No Symptoms GI/Abdominal: Reports: Abdominal Pain, Anorexia, Decreased Appetite : Reports: No Symptoms Musculoskeletal: Reports: No Symptoms Skin: Reports: No Symptoms Neurological: Reports: No Symptoms ED EXAM, GI/ABD - Physical Exam Exam: See Below Text/Narrative:: ill looking and still vomiting Exam Limited By: No Limitations General Appearance: Alert, WD/WN, No Apparent Distress, Lethargic Eyes: Bilateral: EOMI Ears: Normal External Exam Nose: Normal Mucosa Throat/Mouth: Normal Oropharynx Head: Atraumatic Neck: Supple, Non-Tender, Full Range of Motion Respiratory/Chest: Lungs Clear, Normal Breath Sounds Cardiovascular: Regular Rate, Rhythm GI/Abdominal Exam: Soft, Non-Tender Extremities: Normal Range of Motion Neurological: Alert, Oriented Psychiatric: Normal Affect, Normal Mood Course - Vital Signs Last Recorded V/S: Last Vital Signs Temp 37.3 C 05/06/19 20:45 Pulse 85 05/06/19 20:45 Resp 18 05/06/19 20:45 BP 104/50 L 05/06/19 20:45 Pulse Ox 98 05/06/19 20:45 - Orders/Labs/Meds Orders: Active Orders 24 hr Category Date Time Status Sodium Chloride 0.9% [Normal Saline] 1,000 ml Med 05/06/19 18:45 Active IV ASDIRECTED Medication Orders Sodium Chloride (Normal Saline) 1,000 mls @ 999 mls/hr IV ASDIRECTED JOSHUA Last Admin: 05/06/19 19:32 Dose: 999 mls/hr Labs: Laboratory Tests 05/06/19 05/06/19 05/06/19 Range/Units 18:50 18:50 18:50 WBC 6.1 (4.5-12.0) X10-3/uL RBC 4.66 (3.23-5.20) x10(6)uL Hgb 14.3 (11.5-15.5) g/dL Hct 42.4 (30.0-51.3) % MCV 91.0 (80-96) fL MCH 30.7 (27.7-33.6) pg MCHC 33.8 (32.2-35.4) g/dL RDW 12.2 (11.5-15.5) % Plt Count 200 (125-369) X10(3)uL MPV 7.3 L (7.4-10.4) fL Add Manual Diff Yes Neutrophils % (Manual) 89 H (46-82) % Lymphocytes % (Manual) 7 L (13-37) % Monocytes % (Manual) 4 (4-12) % Sodium 143 (135-145) mmol/L Potassium 3.5 (3.5-5.3) mmol/L Chloride 104 (100-110) mmol/L Carbon Dioxide 26 (21-32) mmol/L BUN 18 (7-18) mg/dL Creatinine 0.9 (0.55-1.02) mg/dL Est Cr Clr Drug Dosing 63.92 mL/min Estimated GFR (MDRD) > 60 (>60) BUN/Creatinine Ratio 20.0 (9-20) Glucose 108 (80-116) mg/dL Calcium 8.7 (8.6-10.2) mg/dL Total Bilirubin 0.5 (0.1-1.3) mg/dL AST 48 H (5-25) IU/L ALT 42 H (12-36) U/L Alkaline Phosphatase 90 (56-112) IU/L C-Reactive Protein 2.8 H* (0.5-0.9) mg/dL Total Protein 7.7 (6.0-8.0) g/dL Albumin 4.0 (3.5-5.2) g/dL Globulin 3.7 g/dL Albumin/Globulin Ratio 1.1 Meds: Medications Generic Name Dose Route Start Last Admin Trade Name Freq PRN Reason Stop Dose Admin Sodium Chloride 1,000 mls @ 999 mls/hr 05/06/19 18:45 05/06/19 19:32 Normal Saline IV 999 mls/hr ASDIRECTED JOSHUA Administration Discontinued Medications Generic Name Dose Route Start Last Admin Trade Name Freq PRN Reason Stop Dose Admin Ketorolac Tromethamine 30 mg 05/06/19 20:29 05/06/19 20:38 Toradol IVPUSH 05/06/19 20:30 30 mg ONETIME ONE Administration Ondansetron HCl 8 mg 05/06/19 18:44 05/06/19 19:33 Zofran IVPUSH 05/06/19 18:45 8 mg ONETIME ONE Administration Departure - Departure Time of Disposition: 09:05 Disposition: Home, Self-Care 01 Condition: Fair Clinical Impression: Gastritis and duodenitis, Nausea and vomiting, Dehydration, Food poisoning - Discharge Information Prescriptions: Ondansetron [Zofran ODT] 4 mg PO Q6H PRN #30 tab.dis PRN Reason: Nausea/Vomiting Instructions: Dehydration, Adult, [id number], Gastritis, Adult, [id number] Referrals: Lizbeth Hays PA [Primary Care Provider] - Additional Instructions: Increase fluid intake [place] / BRAT diet for another 24 hrs : bananas, toast apples , broth FU with PCP as needed Sepsis Event Note - Evaluation Sepsis Screening Result: No Definite Risk - Focused Exam Vital Signs: Vital Signs Temp Temp Pulse Pulse Resp BP BP 05/06/19 20:45 37.3 C 85 18 104/50 L 05/06/19 18:27 37.6 C 85 20 125/74 Pulse Ox 05/06/19 20:45 98 05/06/19 18:27 97 Date Exam was Performed: 05/06/19 Time Exam was Performed: 20:51 - My Orders Last 24 Hours: My Active Orders 05/06/19 18:45 Sodium Chloride 0.9% [Normal Saline] 1,000 ml IV ASDIRECTED - Assessment/Plan Last 24 Hours: My Active Orders 05/06/19 18:45 Sodium Chloride 0.9% [Normal Saline] 1,000 ml IV ASDIRECTED
== END 2019-05-06 21:10 | disposition home or self-care (01) ==
LOC: FB.ED 18:14
DX: A05.9 Bacterial foodborne intoxication, unspecified (principal); K29.70 Gastritis, unspecified, without bleeding; K29.80 Duodenitis without bleeding; E86.0 Dehydration; E66.9 Obesity, unspecified; F17.210 Nicotine dependence, cigarettes, uncomplicated; Z90.49 Acquired absence of other specified parts of digestive tract; Z90.710 Acquired absence of both cervix and uterus; Z90.722 Acquired absence of ovaries, bilateral; Z88.1 Allergy status to other antibiotic agents; Z88.8 Allergy status to other drugs, medicaments and biological substances; Z79.899 Other long term (current) drug therapy
CPT/HCPCS: 36415; 80053; 85025; 86140; 87804; 96361; 96374; 96375; 99284; J1885; J2405; J7030

== ENCOUNTER 2020-09-04 13:05 | Emergency (ER) | payer BC ==
[2020-09-04] MEDS ORDERED: LORazepam 2 MG/ML SDV ONE (13:21)
[2020-09-04] MEDS ORDERED: LORazepam 2 MG/ML SDV IM ONE (13:22)
--- NOTE | 2020-09-04 13:25 | EDM.PDOC ---
ED HPI GENERAL MEDICAL PROBLEM - General Stated Complaint: SOB Time Seen by Provider: 09/04/20 13:23 Source of Information: Reports: Patient History Limitations: Reports: No Limitations - History of Present Illness INITIAL COMMENTS - FREE TEXT/NARRATIVE: pt walks in the ER coming from clinic very restless and anxious, c/o SOB and chest pains , the aggitation started about an hr ago, chest pains are like tightness and feels across the chest on and off for 2 days and she is worried she might be having DE , pain is non radiating, pt is hyperventilating and appear very aggitated on arrival, report having diarrhea yesterday and feels dehydrated this morning, denies any diarhea today , report Hx of anxiety, denies any known hx of hear disease or illicit drug use or any other associated morbidities. - Related Data Allergies Allergy/AdvReac Type Severity Reaction Status Date / Time amoxicillin [Amoxicillin] Allergy Anaphylactic Verified 09/04/20 13:26 Shock cephalexin [Cephalexin] Allergy Rash Verified 09/04/20 13:26 ciprofloxacin Allergy Cannot Verified 09/04/20 13:26 Remember diphenhydramine Allergy Agitation Verified 09/04/20 13:26 [From Benadryl] lamotrigine [From Lamictal] Allergy Rash Verified 09/04/20 13:26 levofloxacin Allergy Cannot Verified 09/04/20 13:26 Remember lurasidone Allergy Cannot Verified 09/04/20 13:26 Remember oseltamivir phosphate Allergy Cannot Verified 09/04/20 13:26 [From Tamiflu] Remember quetiapine fumarate Allergy Depression Verified 09/04/20 13:26 [From Seroquel] clonazepam AdvReac Depression Verified 09/04/20 13:26 lorazepam [From Ativan] AdvReac Agitation Verified 09/04/20 13:26 Home Meds: Home Meds traZODone 50 mg PO BEDTIME 06/30/13 [History] Estrogens, Conjugated [Premarin] 0.625 mg PO DAILY 04/08/15 [History] OXcarbazepine [Trileptal] 900 mg PO BEDTIME 04/08/15 [History] Simvastatin 40 mg PO BEDTIME 04/08/15 [History] Cholecalciferol (Vitamin D3) [Vitamin D3] 5,000 unit PO DAILY 01/27/17 [History] Cyanocobalamin (Vitamin B12) [Vitamin B12] 100 mcg PO DAILY 01/27/17 [History] Vortioxetine Hydrobromide [Trintellix] 20 mg PO DAILY 04/11/18 [History] Ondansetron [Zofran ODT] 4 mg PO Q6H PRN #30 tab.dis 05/06/19 [Rx] Pantoprazole Sodium [Protonix] 20 mg PO DAILY #30 tablet. 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: Musculoskeletal History: Reports: Fracture Other Musculoskeletal History: hx fx L foot, R hand Neurological History: Reports: Concussion, Migraines, Seizure Other Neuro History: "pseudoseizures" per , and pt Psychiatric History: Reports: Anxiety, Bipolar, Depression, Psych Hospitalization(s) Endocrine/Metabolic History: Reports: Obesity/BMI 30+ - Infectious Disease History Infectious Disease History: Reports: Chicken Pox, Influenza - Past Surgical History Head Surgeries/Procedures: Reports: None HEENT Surgical History: Reports: Oral Surgery GI Surgical History: Reports: Appendectomy, Cholecystectomy, Colonoscopy Female Surgical History: Reports: Section, Hysterectomy, Salpingo- Oophorectomy Other Female Surgeries/Procedures: CS x 3 Musculoskeletal Surgical History: Reports: Other (See Below) Other Musculoskeletal Surgeries/Procedures:: L foot surgery Social & Family History - Family History Family Medical History: Unobtainable - Caffeine Use Caffeine Use: Reports: Soda Caffeine Use Comment: drinks decaf coffee - Living Situation & Occupation Living situation: Reports: ED ROS GENERAL - Review of Systems Review Of Systems: See Below Constitutional: Reports: No Symptoms HEENT: Reports: No Symptoms Respiratory: Reports: Shortness of Breath. Denies: Wheezing, Pleuritic Chest Pain, Cough Cardiovascular: Reports: Chest Pain. Denies: Claudication, Dyspnea on Exertion, Lightheadedness GI/Abdominal: Reports: No Symptoms : Reports: No Symptoms Musculoskeletal: Reports: No Symptoms Skin: Reports: No Symptoms Neurological: Reports: No Symptoms Psychiatric: Reports: No Symptoms ED EXAM, GENERAL - Physical Exam Exam: See Below Exam Limited By: No Limitations General Appearance: Alert, No Apparent Distress Eye Exam: Bilateral Eye: Normal Inspection Ears: Normal External Exam, Normal TMs Nose: Normal Inspection Throat/Mouth: Normal Inspection, Normal Oropharynx Head: Atraumatic Neck: Normal Inspection, Supple, Non-Tender Respiratory/Chest: No Respiratory Distress, Lungs Clear, No Accessory Muscle Use Cardiovascular: Normal Peripheral Pulses, Regular Rate, Rhythm GI/Abdominal: Normal Bowel Sounds, Soft, Non-Tender Extremities: Normal Inspection Neurological: Alert, Oriented, CN II-XII Intact, Other (pt became shortly during this evaluation very calm and cooperative . ) Skin Exam: Warm Course - Vital Signs Text/Narrative:: EKG shows NS , no acute changes, pt is totally asymptomatic after her arrival, she was reassured with unremarkable labs ad trop , also no acute changes on her CXR. vitals are nl and pt is asymptomatic, was hydrated with nl while awaiting for her labs which shows no signs of dehydration. pt has been havening nonspecific sx of recurrent chest pains which appear anxiety related and presented to ER with acute panic attack that resolved completely without the need to initiate any treatment whch she has refused anyway stating she has allergy to benzos but not sure what type. pt is medically stable for discharge home with her family , she is stable to continue with current home medications for anxiety and was asked to follow with PCP early this coming week for re-check. - Orders/Labs/Meds Orders: Active Orders 24 hr Category Date Time Status EKG Documentation Completion [RC] ASDIRECTED Care 09/04/20 13:05 Active Chest 1V Frontal [CR] Stat Exams 09/04/20 13:33 Taken Sodium Chloride 0.9% [Normal Saline] 1,000 ml Med 09/04/20 14:08 Active IV .BOLUS EKG 12 Lead [EK] Routine Ther 09/04/20 13:05 Ordered Medication Orders Sodium Chloride (Normal Saline) 1,000 mls @ 999 mls/hr IV .BOLUS ONE Stop: 09/04/20 15:08 Last Admin: 09/04/20 14:20 Dose: 999 mls/hr Documented by: FRANCES Labs: Laboratory Tests 09/04/20 09/04/20 09/04/20 Range/Units 14:15 14:15 14:15 WBC 5.3 (3.0-10.3) x10-3/uL RBC 4.35 (3.60-5.20) x10(6)uL Hgb 13.7 (11.4-15.5) g/dL Hct 39.9 (34.2-48.2) % MCV 91.7 (76.7-100.5) fL MCH 31.5 (23.9-33.9) pg MCHC 34.3 (31.9-34.8) g/dL RDW 13.0 (12.3-16.5) % Plt Count 196 (151-488) x10(3)uL MPV 7.7 (7.1-12.4) fL Neut % (Auto) 61.0 (30.8-76.2) % Lymph % (Auto) 30.1 (18.4-52.1) % [place] % (Auto) 6.5 (4.4-15.7) % Eos % (Auto) 1.6 (0.6-8.1) % Baso % (Auto) 0.8 (0.2-1.5) % Neut # (Auto) 3.2 (1.5-6.3) x10-3/uL Lymph # (Auto) 1.6 (1.0-4.4) x10-3/uL [place] # (Auto) 0.3 (0.3-1.0) x10-3/uL Eos # (Auto) 0.1 (0.0-0.8) x10-3/uL Baso # (Auto) 0.0 (0.0-0.1) x10-3/uL D-Dimer, Quantitative 0.36 (0.0-0.59) mg/LFEU Sodium 143 (135-145) mmol/L Potassium 4.0 (3.5-5.3) mmol/L Chloride 103 (100-110) mmol/L Carbon Dioxide 29 (21-32) mmol/L BUN 15 (7-18) mg/dL Creatinine 1.0 (0.55-1.02) mg/dL Est Cr Clr Drug Dosing TNP Estimated GFR (MDRD) 59 L (>60) BUN/Creatinine Ratio 15.0 (9-20) Glucose 88 (80-116) mg/dL Calcium 8.6 (8.6-10.2) mg/dL Total Bilirubin 0.2 (0.1-1.3) mg/dL AST 17 D (5-25) IU/L ALT 28 D (12-36) U/L Alkaline Phosphatase 78 (56-112) IU/L Troponin I (4.0-60.3) pg/mL Total Protein 7.8 (6.0-8.0) g/dL Albumin 3.8 (3.5-5.2) g/dL Globulin 4.0 g/dL Albumin/Globulin Ratio 1.0 TSH, Ultra Sensitive (0.36-3.74) IU/mL 09/04/20 Range/Units 14:15 WBC (3.0-10.3) x10-3/uL RBC (3.60-5.20) x10(6)uL Hgb (11.4-15.5) g/dL Hct (34.2-48.2) % MCV (76.7-100.5) fL MCH (23.9-33.9) pg MCHC (31.9-34.8) g/dL RDW (12.3-16.5) % Plt Count (151-488) x10(3)uL MPV (7.1-12.4) fL Neut % (Auto) (30.8-76.2) % Lymph % (Auto) (18.4-52.1) % [place] % (Auto) (4.4-15.7) % Eos % (Auto) (0.6-8.1) % Baso % (Auto) (0.2-1.5) % Neut # (Auto) (1.5-6.3) x10-3/uL Lymph # (Auto) (1.0-4.4) x10-3/uL [place] # (Auto) (0.3-1.0) x10-3/uL Eos # (Auto) (0.0-0.8) x10-3/uL Baso # (Auto) (0.0-0.1) x10-3/uL D-Dimer, Quantitative (0.0-0.59) mg/LFEU Sodium (135-145) mmol/L Potassium (3.5-5.3) mmol/L Chloride (100-110) mmol/L Carbon Dioxide (21-32) mmol/L BUN (7-18) mg/dL Creatinine (0.55-1.02) mg/dL Est Cr Clr Drug Dosing Estimated GFR (MDRD) (>60) BUN/Creatinine Ratio (9-20) Glucose (80-116) mg/dL Calcium (8.6-10.2) mg/dL Total Bilirubin (0.1-1.3) mg/dL AST (5-25) IU/L ALT (12-36) U/L Alkaline Phosphatase (56-112) IU/L Troponin I < 4.0 L (4.0-60.3) pg/mL Total Protein (6.0-8.0) g/dL Albumin (3.5-5.2) g/dL Globulin g/dL Albumin/Globulin Ratio TSH, Ultra Sensitive 0.90 (0.36-3.74) IU/mL Meds: Medications Generic Name Dose Route Start Last Admin Trade Name Freq PRN Reason Stop Dose Admin Sodium Chloride 1,000 mls @ 999 mls/hr 09/04/20 14:08 09/04/20 14:20 Normal Saline IV 09/04/20 15:08 999 mls/hr .BOLUS ONE Administration Discontinued Medications Generic Name Dose Route Start Last Admin Trade Name Freq PRN Reason Stop Dose Admin Lorazepam Confirm 09/04/20 13:21 Lorazepam 2 Mg/Ml Sdv Administered 09/04/20 13:22 Dose 2 mg .ROUTE .STK-MED ONE Lorazepam 2 mg 09/04/20 13:22 09/04/20 14:46 Lorazepam 2 Mg/Ml Sdv IM 09/04/20 13:23 Not Given ONETIME ONE Departure - Departure Time of Disposition: 15:07 Disposition: Home, Self-Care 01 Clinical Impression: Anxiety - Discharge Information - My Orders Last 24 Hours: My Active Orders 09/04/20 13:05 EKG Documentation Completion [RC] ASDIRECTED EKG 12 Lead [EK] Routine 09/04/20 13:33 Chest 1V Frontal [CR] Stat 09/04/20 14:08 Sodium Chloride 0.9% [Normal Saline] 1,000 ml IV .BOLUS - Assessment/Plan Last 24 Hours: My Active Orders 09/04/20 13:05 EKG Documentation Completion [RC] ASDIRECTED EKG 12 Lead [EK] Routine 09/04/20 13:33 Chest 1V Frontal [CR] Stat 09/04/20 14:08 Sodium Chloride 0.9% [Normal Saline] 1,000 ml IV .BOLUS
[2020-09-04] MEDS ORDERED: Sodium Chloride 0.9% 1,000 ML IV ONE (14:08)
[2020-09-04 16:56] VITALS: BP 124/66; PULSE 55
--- NOTE | 2020-09-06 10:43 | CR ---
INDICATION: Short of breath for the past week. Sharp chest pain. Smoker one- half pack per day 30+ years. CHEST ONE VIEW: AP portable upright view of the chest 09/04/20 was compared with 04/08/15 revealing pulmonary markings similar to the previous examination - slightly prominent at the left lung base, likely fibrotic in nature, but making it difficult to exclude minimal patchy bronchopneumonia in that area. However, no consolidating pneumonia or effusion was identified. The heart and mediastinum and bony thorax are unremarkable except to note a minimal dextroconcave scoliosis at the lower and middle thoracic spine. IMPRESSION: 1. No definite acute process, but difficult to exclude minimal patchy bronchopneumonia at the left lung base versus fibrosis in that area. 2. Very minimal scoliosis. MTDD
== END 2020-09-04 16:20 | disposition home or self-care (01) ==
LOC: FB.ED 13:05
DX: F41.9 Anxiety disorder, unspecified (principal); E78.00 Pure hypercholesterolemia, unspecified; E66.9 Obesity, unspecified; Z68.30 Body mass index [BMI] 30.0-30.9, adult; Z88.5 Allergy status to narcotic agent; Z88.0 Allergy status to penicillin; Z88.1 Allergy status to other antibiotic agents; Z88.8 Allergy status to other drugs, medicaments and biological substances
CPT/HCPCS: 36415; 71045; 80053; 84443; 84484; 85025; 85379; 93005; 99285; J7030

== ENCOUNTER 2024-09-17 08:30 | Day surgery (SDC) | payer BC ==
[~2024-09-17 08:30] MED LIST: Sodium Chloride 0.9% 10 ML Syringe FLUSH PRN
[2024-09-17] MEDS ORDERED: Lidocaine 2% 100 MG/5 ML Syringe IVPUSH ONE (08:31)
[2024-09-17] MEDS ORDERED: Lidocaine 2% 5 ML SDV ONE (08:31)
[2024-09-17] MEDS ORDERED: Propofol 200 MG/20 ML SDV IV ONE (08:31)
[2024-09-17] MEDS ORDERED: Midazolam 1 MG/ML 2 ML SDV IV ONE (08:31)
[2024-09-17] MEDS: Lactated Ringers 1,000 ML IV SCH (09:30)
[2024-09-17] MEDS: Simethicone Drops 40 MG/0.6 ML 30 ML Bottle ONE (09:40)
[2024-09-17 10:47] VITALS: BP 99/60; PULSE 68
== END 2024-09-17 10:46 | disposition home or self-care (01) ==
LOC: FB.SDS 08:30
PROVIDERS: ATTEND Surgery
DX: K29.80 Duodenitis without bleeding (principal); K29.50 Unspecified chronic gastritis without bleeding; K31.A0 Gastric intestinal metaplasia, unspecified; R19.5 Other fecal abnormalities; R63.0 Anorexia; F17.210 Nicotine dependence, cigarettes, uncomplicated; Z88.1 Allergy status to other antibiotic agents; Z88.8 Allergy status to other drugs, medicaments and biological substances; Z79.899 Other long term (current) drug therapy
CPT/HCPCS: 00731; 43239; 88305; 88342; A9270; J2003; J2250; J2704; J7120